=== PATIENT | female | born 1960 | race Caucasian/White ===

== ENCOUNTER 2024-03-29 19:12 | Emergency (ER) | payer MEDICARE, OTHER ==
[~2024-03-29] VITALS: Ht 160 cm; Wt 76.0 kg
[2024-03-29 19:22] VITALS: BP 130/80; PULSE 80; RESP 16; TEMP 98.6; O2SAT 98
[2024-03-29] MEDS ORDERED: ACETAMINOPHEN 325MG TABLET PO ONE (21:30)
[2024-03-29] MEDS ORDERED: ACET-2708 MT (23:00)
[2024-03-29] MEDS ORDERED: IOHEXOL-300 100 ML BOTTLE ONE (23:14)
== END 2024-03-30 00:06 | disposition home or self-care (01) ==
LOC: ER 19:12
DX: S10.93XA Contusion of unspecified part of neck, initial encounter (principal); S09.90XA Unspecified injury of head, initial encounter; J44.89 Other specified chronic obstructive pulmonary disease; I25.10 Atherosclerotic heart disease of native coronary artery without angina pectoris; Z86.73 Personal history of transient ischemic attack (TIA), and cerebral infarction without residual deficits; Z88.6 Allergy status to analgesic agent; Z88.8 Allergy status to other drugs, medicaments and biological substances; X58.XXXA Exposure to other specified factors, initial encounter; Y93.89 Activity, other specified; Y92.89 Other specified places as the place of occurrence of the external cause; Y99.8 Other external cause status
CPT/HCPCS: 99284; 70450; 70486; 72125; Q9967